=== PATIENT | female | born 1975 ===

== ENCOUNTER 2019-06-24 16:15 | Emergency (ER) | payer MEDICAID ==
--- NOTE | 2019-06-24 16:36 | Event Note ---
ED Screening Note Date of service: 06/24/19 Time: 16:34 ED Screening Note: 44 yo f prsents with pelvic pain x yesterday, also cc of pain with ua and back pain pmh kidney stones This initial assessment/diagnostic orders/clinical plan/treatment(s) is/are subject to change based on patients health status, clinical progression and re- assessment by fellow clinical providers in the ED. Further treatment and workup at subsequent clinical providers discretion. Patient/guardian urged not to elope from the ED as their condition may be serious if not clinically assessed and managed. Initial orders include: ua,upt
[2019-06-24 17:37] LABS: Bilirubin,Urine NEG (Negative); Blood,Urine SM (Negative); Color,Urine Yellow (Yellow); Protein,Urine <15 mg/dL mg/dL (Negative); Urobilinogen,Urine < 2.0 mg/dL (<2.0)
[2019-06-24 17:41] LABS: HCG Qualitative,Urine Negative (Negative)
[2019-06-24 18:05] LABS: Hemoglobin 13.1 gm/dl (10.1-14.3); Mean Corpuscular HGB Conc 34 % (30-34); Mean Corpuscular Volume 95 fl (79-97); Platelet Count 298 K/mm3 (140-440); Red Blood Count 4.09 M/mm3 (3.65-5.03); Red Cell Distribution Width 13.7 % (13.2-15.2)
[2019-06-24 18:16] LABS: BUN/Creatinine Ratio 20; Blood Urea Nitrogen 16 mg/dL (7-17); Calcium 9.6 mg/dL (8.4-10.2); Hemolysis Index 11
[2019-06-24] MEDS ORDERED: IBUPROFEN PO ONE (18:37)
--- NOTE | 2019-06-24 18:37 | Emergency Department Report ---
ED Dysuria HPI - HPI Chief Complaint: Abdominal Pain Stated Complaint: ABD PAIN Time Seen by Provider: 06/24/19 16:33 Location of Discomfort: Urethra (dysuria) Severity: Mild Symptoms: Dysuria: No, Frequency: No, Suprapubic Pain: No, Flank Pain: No, Fever: No, Hematuria: No, Abdominal Pain: No, Previous UTI's: Yes Other History: 44 YO COMES TO ER WITH SUPRAPUBIC CRAMPS. NO PERIOD IN 1 YEARS. NO BIRTHCONTROL. NO N/V/D. NO FEVER OR CHILLS. ED Review of Systems ROS: Stated complaint: ABD PAIN Other details as noted in HPI Comment: All other systems reviewed and negative ED Past Medical Hx - Past Medical History Previous Medical History?: Yes Additional medical history: Hx kidney stone - Surgical History Past Surgical History?: No - Family History Family history: no significant - Social History Smoking Status: Never Smoker Substance Use Type: None - Medications Home Medications: Home Medications Medication Instructions Recorded Confirmed Last Taken Type Ibuprofen [Motrin] 800 mg PO Q8HR PRN #20 tablet 06/24/19 Unknown Rx Dysuria Exam - Exam General: Vital signs noted. No distress. Alert and acting appropriately. Exam: Yes Moist Mucous Membranes, No CVA Tenderness, No Abdominal Tenderness, No Rigidity or Guarding Labs: Lab Results 06/24/19 06/24/19 06/24/19 Range/Units 16:00 17:43 17:43 WBC 12.8 H (4.5-11.0) K/mm3 RBC 4.09 (3.65-5.03) M/mm3 Hgb 13.1 (10.1-14.3) gm/dl Hct 39.0 (30.3-42.9) % MCV 95 (79-97) fl MCH 32 (28-32) pg MCHC 34 (30-34) % RDW 13.7 (13.2-15.2) % Plt Count 298 (140-440) K/mm3 Sodium 143 (137-145) mmol/L Potassium 4.3 (3.6-5.0) mmol/L Chloride 105.1 (98-107) mmol/L Carbon Dioxide 24 (22-30) mmol/L Anion Gap 18 mmol/L BUN 16 (7-17) mg/dL Creatinine 0.8 (0.7-1.2) mg/dL Estimated GFR > 60 ml/min BUN/Creatinine Ratio 20 % Glucose 89 (65-100) mg/dL Calcium 9.6 (8.4-10.2) mg/dL Urine Color Yellow (Yellow) Urine Turbidity Slightly-cloudy (Clear) Urine pH 7.0 (5.0-7.0) Ur Specific [place] 1.017 (1.003-1.030) Urine Protein <15 mg/dl (Negative) mg/dL Urine Glucose (UA) Neg (Negative) mg/dL Urine Ketones Neg (Negative) mg/dL Urine Blood Sm (Negative) Urine Nitrite Neg (Negative) Urine Bilirubin Neg (Negative) Urine Urobilinogen < 2.0 (<2.0) mg/dL Ur Leukocyte Esterase Sm (Negative) Urine WBC (Auto) 4.0 (0.0-6.0) /HPF Urine RBC (Auto) 11.0 (0.0-6.0) /HPF U Epithel Cells (Auto) 11.0 (0-13.0) /HPF Urine HCG, Qual Negative (Negative) ED Course Vital Signs 06/24/19 16:34 Temperature 98.2 F Pulse Rate 81 Respiratory 18 Rate Blood Pressure 97/52 O2 Sat by Pulse 98 Oximetry ED Medical Decision Making - Lab Data Result diagrams: 06/24/19 17:43 06/24/19 17:43 - Medical Decision Making Labs 06/24/19 06/24/19 06/24/19 16:00 17:43 17:43 WBC 12.8 H RBC 4.09 Hgb 13.1 Hct 39.0 MCV 95 MCH 32 MCHC 34 RDW 13.7 Plt Count 298 Sodium 143 Potassium 4.3 Chloride 105.1 Carbon Dioxide 24 Anion Gap 18 BUN 16 Creatinine 0.8 Estimated GFR > 60 BUN/Creatinine Ratio 20 Glucose 89 Calcium 9.6 Urine Color Yellow Urine Turbidity Slightly-cloudy Urine pH 7.0 Ur Specific [place] 1.017 Urine Protein <15 mg/dl Urine Glucose (UA) Neg Urine Ketones Neg Urine Blood Sm Urine Nitrite Neg Urine Bilirubin Neg Urine Urobilinogen < 2.0 Ur Leukocyte Esterase Sm Urine WBC (Auto) 4.0 Urine RBC (Auto) 11.0 U Epithel Cells (Auto) 11.0 Urine HCG, Qual Negative Vital Signs 06/24/19 16:34 Temperature 98.2 F Pulse Rate 81 Respiratory 18 Rate Blood Pressure 97/52 O2 Sat by Pulse 98 Oximetry LABS NOTED UA NOTED PREG NEG PT RECENTLY TREATED WITH 7 DAY BACTRIM- URINE CLEAN TODAY HX KIDNEY STONE- NO BLOOD IN URINE PAIN IS SUPRAPUBIC LMP YRS AGO PT HAS NO HORMONE IMPLANT/ NO PO HORMONES AND IS ONLY 44 SHE HAS CRAMPING BUT NO MENSES 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 ED Disposition Clinical Impression: Dysmenorrhea, Pelvic pain Disposition: DC- TO HOME OR SELFCARE Is pt being admited?: No Does the pt Need Aspirin: No Condition: Stable Instructions: Dysmenorrhea (ED) Additional Instructions: FOLLOW UP WITH OBGYN [facility] REFERRAL BELOW DRINK A LOT OF WATER MEDS ORDERED TODAY FOR PAIN Referrals: TOR CLARK MD [Staff Physician] - 3-5 Days Time of Disposition: 18:35
[2019-06-24 19:03] VITALS: BP 127/86
== END 2019-06-24 18:58 | disposition home or self-care (01) ==
LOC: ED 16:15
DX: N94.6 Dysmenorrhea, unspecified (principal); Z88.0 Allergy status to penicillin; Z87.442 Personal history of urinary calculi
CPT/HCPCS: 36415; 80048; 81001; 81025; 85027; 99283

== ENCOUNTER 2019-08-24 17:43 | Emergency (ER) | payer MEDICAID ==
--- NOTE | 2019-08-24 17:59 | Event Note ---
ED Screening Note ED Screening Note: lower back pain that began today states that she bent over to pick something up and felt pain in the lower back no numbness states pain goes down both legs never injured before PMHx nephrolithiasis allergy to penicillin This initial assessment/diagnostic orders/clinical plan/treatment(s) is/are sub ject to change based on patients health status, clinical progression and re- assessment by fellow clinical providers in the ED. Further treatment and workup at subsequent clinical providers discretion. Patient/guardian urged not to elope from the ED as their condition may be serious if not clinically assessed and managed. Initial orders include: XR of the L-spine
--- NOTE | 2019-08-24 18:30 | XRay Report ---
Lumbar spine-3 views INDICATION: lower back pain. COMPARISON: None. IMPRESSION: Gentle kyphosis centered at L2. Otherwise normal alignment. Minimal multilevel discogen ic DJD. No acute osseous or soft tissue abnormality. Signer Name: Jaron Guzman MD Signed: 08/24/2019 6:26 PM Workstation Name: [id number]
[2019-08-24] MEDS ORDERED: KETOROLAC 60 MG/2 ML INJ IM ONE (18:37)
[2019-08-24 19:58] LABS: Amorphous Crystals,Urine Few; Bilirubin,Urine NEG (Negative); Blood,Urine MOD (Negative); Color,Urine Yellow (Yellow); Mucus,Urine FEW /HPF; Protein,Urine <15 mg/dL mg/dL (Negative); Urobilinogen,Urine < 2.0 mg/dL (<2.0)
[2019-08-24 19:59] LABS: HCG Qualitative,Urine Negative (Negative)
--- NOTE | 2019-08-24 20:06 | Emergency Department Report ---
ED Back Pain/Injury HPI - General Chief Complaint: Abdominal Pain Stated Complaint: WAIST PAIN/COUGH Time Seen by Provider: 08/24/19 17:57 Source: patient Limitations: Language Barrier - History of Present Illness Initial Comments: Patient is a 44-year-old female who is complaining of some lower back pain which started earlier today. Patient states she bent over while in the laundromat and had acute onset of lower back pain. This right slightly greater than left. Patient states there has been no dysuria or urinary frequency or hematuria present. She does have a history of kidney stones but states this feels different. Pain is at its worst is 6 out of 10 in severity and aching throbbing and worse with movement. - Related Data Previous Rx's Medication Instructions Recorded Last Taken Type Ibuprofen [Motrin] 800 mg PO Q8HR PRN #20 tablet 06/24/19 Unknown Rx Nitrofurantoin [place]/M-Cryst 100 mg PO Q12HR #6 capsule 08/24/19 Unknown Rx [Macrobid CAP] methOCARBAMOL [Robaxin TAB] 500 mg PO Q6H PRN #14 tablet 08/24/19 Unknown Rx predniSONE [Deltasone] 20 mg PO QDAY #5 tab 08/24/19 Unknown Rx traMADol [Ultram] 50 mg PO Q6HR PRN #12 tablet 08/24/19 Unknown Rx Allergies Allergy/AdvReac Type Severity Reaction Status Date / Time Penicillins Allergy Anaphylaxis Verified 06/24/19 16:19 ED Review of Systems ROS: Stated complaint: WAIST PAIN/COUGH Other details as noted in HPI Comment: All other systems reviewed and negative ED Past Medical Hx - Past Medical History Hx kidney stone Family history: no significant family history ED Back Pain Physical Exam - Exam General: Vital signs noted. No distress. Alert and acting appropriately. Back/Abdomen: Yes Perilumbar Tenderness, No Abdominal Tenderness, No Perithoracic Tenderness, No Sacroiliac Tenderness, No Flank Tenderness, No Straight Leg Raise Pain Neuro: Yes Normal Sensation, Yes Normal DTR's, Yes Normal Gait, No Motor Weakness ED Course Vital Signs 08/24/19 17:52 Temperature 98.7 F Pulse Rate 85 Respiratory 18 Rate Blood Pressure 124/64 O2 Sat by Pulse 98 Oximetry Ed Back Pain Tests - Tests Tests: Normal X Rays, Abnormal UA ED Medical Decision Making - Radiology Data [facility] [address] [place] [address] XRay Report Signed Patient: REA HERNANDEZ MR#: [id number] 4 : 1975 Acct:[id number] Age/Sex: 44 / F ADM Date: 08/24/19 Loc: ED Attending Dr: Ordering Physician: GURJIT VALENCIA Date of Service: 08/24/19 Procedure(s): XR spine lumbosacral 2-3V Accession Number(s): [id number] cc: GURJIT VALENCIA Fluoro Time In Minutes: Lumbar spine-3 views INDICATION: lower back pain. COMPARISON: None. IMPRESSION: Gentle kyphosis centered at L2. Otherwise normal alignment. Minimal multilevel discogenic DJD. No acute osseous or soft tissue abnormality. Signer Name: Jaron Guzman MD Signed: 08/24/2019 6:26 PM Workstation Name: [id number] Transcribed By: JAVI Dictated By: Jaron Guzman MD Electronically Authenticated By: Jaron Guzman MD Signed Date/Time: 08/24/19 1826 - Medical Decision Making Since had acute onset of severe low back pain after bending over. X-rays are negative for acute process. Urinalysis shows no hematuria however she does have what appears to be early stages of urinary tract infection. Patient is asymptomatic be placed in 3 days of Macrobid. Patient otherwise be treated for some dramatic relief of her lower back strain. Critical care attestation.: If time is entered above; I have spent that time in minutes in the direct care of this critically ill patient, excluding procedure time. ED Disposition Clinical Impression: Acute myofascial strain of lumbar region, Bacteria in urine Disposition: DC-01 TO HOME OR SELFCARE Is pt being admited?: No Does the pt Need Aspirin: No Condition: Stable Instructions: Low Back Strain (ED), Urinary Tract Infection in Women (ED) Referrals: STEWART CURTIS MD [Staff Physician] - 3-5 Days Time of Disposition: 20:08 Print Language: ZAMBIAN
[2019-08-24 20:23] VITALS: BP 118/76
== END 2019-08-24 20:20 | disposition home or self-care (01) ==
LOC: ED 17:43
DX: S39.012A Strain of muscle, fascia and tendon of lower back, initial encounter (principal); R82.71 Bacteriuria; Z79.899 Other long term (current) drug therapy; Z87.442 Personal history of urinary calculi; Z88.0 Allergy status to penicillin; X58.XXXA Exposure to other specified factors, initial encounter; Y93.89 Activity, other specified; Y92.89 Other specified places as the place of occurrence of the external cause; Y99.8 Other external cause status
CPT/HCPCS: 72100; 81001; 81025; 87086; 96372; 99284; J1885